=== PATIENT | male | born 1995 | race Hispanic/Latino ===

== ENCOUNTER 2016-07-24 10:03 | Emergency (ER) | payer SELFPAY ==
[~2016-07-24] VITALS: Ht 165.1 cm; Wt 68.0 kg
== END 2016-07-24 11:58 | disposition short-term general hospital (02) ==
LOC: ER 10:03
DX: R11.2 Nausea with vomiting, unspecified (principal); R10.13 Epigastric pain
CPT/HCPCS: J2405